=== PATIENT | male | born 2000 | race Caucasian/White ===

== ENCOUNTER 2020-12-04 06:30 | Emergency (ER) | payer OTHER ==
[~2020-12-04] VITALS: Ht 180.3 cm; Wt 106.6 kg
[~2020-12-04 06:30] MED LIST: AZIT250T4 PO; CETI1TAB5 PO; NAPR-54 PO; PROM118S5 PO
[2020-12-04 06:35] VITALS: BP 141/52
--- NOTE | 2020-12-04 06:45 | NUR ---
TO ER BED 7
--- NOTE | 2020-12-04 06:52 | NUR ---
Patient being evaluated by physician at bedside.
--- NOTE | 2020-12-04 06:59 | NUR ---
20 Y/O MALE CAME TO THE ED C/O RT FOOT BLISTER AND LT HAND PAIN. PT STATES, "I WAS PLAYING FOOT BALL LAST WEDNESDAY NIGHT WHEN I HURT MY FOOT." 1.5 inch blister noted; no bleeding; 6/10 "stinging" pain. ERMD made aware [facility] PMH: DENIES
[2020-12-04] MEDS ORDERED: IBUP-2213 PO (07:06)
[2020-12-04] MEDS ORDERED: BACTO TP (07:06)
--- NOTE | 2020-12-04 07:19 | NUR ---
PT PLACED IN LEFT VELCRO WRIST SPLINT CMS WNL BEFORE AND AFTER.
[2020-12-04 07:33] VITALS: BP 141/52
--- NOTE | 2020-12-04 07:40 | NUR ---
Patient discharged with v/s stable. Written and verbal after care instructions given and explained. Patient alert, oriented and verbalized understanding of instructions. Ambulatory with steady gait. All questions addressed prior to discharge. ID band removed. Patient advised to follow up with PMD. Rx of motrin, mupirocin given. Patient educated on indication of medication including possible reaction and side effects. Opportunity to ask questions provided and answered.
== END 2020-12-04 07:30 | disposition home or self-care (01) ==
LOC: MED 06:30
DX: S90.821A Blister (nonthermal), right foot, initial encounter (principal); G56.02 Carpal tunnel syndrome, left upper limb; Z88.0 Allergy status to penicillin; Z79.899 Other long term (current) drug therapy; X58.XXXA Exposure to other specified factors, initial encounter; Y93.89 Activity, other specified; Y92.89 Other specified places as the place of occurrence of the external cause; Y99.8 Other external cause status
CPT/HCPCS: 99283

== ENCOUNTER 2023-08-24 10:33 | Emergency (ER) | payer OTHER ==
[~2023-08-24] VITALS: Ht 180.3 cm; Wt 99.8 kg
[~2023-08-24 10:33] MED LIST changes: +BACTO TP; +IBUP-2213 PO
[2023-08-24 10:49] VITALS: BP 125/76; PULSE 95; RESP 17; TEMP 97; O2SAT 97
[2023-08-24] MEDS ORDERED: BENZ1GEL13 MM (12:13)
[2023-08-24] MEDS ORDERED: IBUP-2213 PO (12:14)
== END 2023-08-24 12:24 | disposition home or self-care (01) ==
LOC: MED 10:33
DX: K12.0 Recurrent oral aphthae (principal); Z79.899 Other long term (current) drug therapy
CPT/HCPCS: 87081; 99283